=== PATIENT | male | born 1975 | race Caucasian/White ===

== ENCOUNTER 2018-11-07 07:47 | Emergency (ER) | payer OTHER, SELFPAY ==
[2018-11-07] VITALS (7 sets, daily range): BP systolic 131–146; BP diastolic 76–106; PULSE 74–94; RESP 12–28; TEMP 36.2; O2SAT 96–100
--- NOTE | 2018-11-07 08:05 | ED.URI ---
HPI - URI/Sore Throat General Chief Complaint: Upper Respiratory Symptoms Stated Complaint: coughing up blood Time Seen by Provider: 11/07/18 07:58 Source: patient Mode of arrival: ambulatory Limitations: no limitations History of Present Illness HPI Narrative: Patient is a 43-year-old male who presents with productive cough ongoing for about 3 weeks. He was seen evaluated at the walk-in clinic all 1 week ago all placed on amoxicillin prednisone albuterol. He says overall he does not feel any better. He continues to cough up. Initially it was green however this morning was brown and blood tinged. He feels weak and short of breath with exertion. He has had chills and sweats but is afebrile. He feels like his chest is tight at times. Every time he takes a deep breath he coughs MD Complaint: fever and cough Related Data Home Medications Medication Instructions Recorded Confirmed amoxicillin 1,000 mg PO [id number] 11/07/18 11/07/18 Previous Rx's Medication Instructions Recorded albuterol sulfate HFA 90 1 inh INHALATION Q4-6H PRN #18 gram 11/01/18 mcg/actuation aerosol inhaler azithromycin 250 mg tablet See Rx Instructions PO .COMPLEX #6 11/01/18 tab benzonatate 100 mg capsule 100 mg PO BEDTIME #20 cap 11/01/18 albuterol sulfate 2 puff INHALATION Q4-6H PRN #8 gram 11/07/18 doxycycline hyclate 100 mg PO BID #14 cap 11/07/18 Allergies Allergy/AdvReac Type Severity Reaction Status Date / Time meperidine [From Demerol] Allergy Unknown Verified 11/01/18 10:39 stimulants AdvReac Unknown Uncoded 09/20/18 09:13 Review of Systems Review of Systems ROS Unobtainable: All systems reviewed & are unremarkable except as noted in HPI and below Constitutional Denies chills, Denies fever(s), Denies lethargy and Denies weakness Eyes Denies change in vision, Denies eye discharge, Denies irritation and Denies loss of vision Cardiovascular Reports chest pain Respiratory Reports as per HPI Gastrointestinal Gastrointestinal: Denies abdominal pain, Denies change in bowel habits, Denies diarrhea, Denies nausea and Denies vomiting Genitourinary Denies hematuria, Denies flank pain, Denies urinary incontinence and Denies urinary urgency Musculoskeletal Denies back pain, Denies muscle weakness, Denies numbness and Denies tingling Integumentary/Breasts Denies pruritus, Denies erythema, Denies rash and Denies wounds Neurologic Denies loss of vision, Denies numbness, Denies tingling and Denies weakness [facility] Medical History Patient denies significant medical history (Acute) Social History Smoking Status: Former smoker Social History Smoking Status: Former smoker Exam Initial Vital Signs Initial Vital Signs: Vital Signs Temperature 97.2 F L 11/07/18 07:59 Pulse Rate 86 11/07/18 07:59 Respiratory Rate 28 H 11/07/18 07:59 Blood Pressure 146/106 H 11/07/18 07:59 Pulse Oximetry 97 11/07/18 07:59 GENERAL: Patient does appear in some mild distress but A&O times 4 HEENT: Head atraumatic,EOMI, pupils reactive, face symmetric, moist mucous membranes CARDIOVASCULAR: Regular rate and rhythm without murmurs, rubs or gallops. RESPIRATORY: Crackles on the left side. He has some mild conversational dyspnea but is able to speak completely. No wheezing ABDOMEN: Soft, nontender. Normoactive bowel sounds all 4 quadrants. No guarding or rebound. EXTREMITIES: Normal range of motion, no clubbing or edema. Neurovascularly intact NEUROLOGICAL: Alert and oriented x4.Normal gait and speech. Cranial nerves II through XII grossly intact. SKIN: Warm, dry, no laceration, no petechiae, no rashes or lesions. Course Orders Ordered: ED Orders 11/07/18 09:26 Comprehensive Metabolic Panel Stat Discontinued Medications Albuterol (Ventolin) 2.5 mg INH NOW ONE Stop: 11/07/18 08:42 Last Admin: 11/07/18 08:44 Dose: 2.5 mg Albuterol/Ipratropium (Duoneb) 3 ml INH NOW ONE Stop: 11/07/18 08:06 Last Admin: 11/07/18 08:28 Dose: 3 ml Sodium Chloride (Normal Saline 0.9%) 1,000 mls @ 1,000 mls/hr IV BOLUS ONE Stop: 11/07/18 09:04 Last Infusion: 11/07/18 10:06 Dose: 0 mls/hr Admin: 11/07/18 08:43 Dose: 1,000 mls/hr Vital Signs - 8 hr 11/07/18 10:30 Pulse Rate 77 Respiratory Rate 12 Blood Pressure [Left Arm] 138/76 Pulse Oximetry 96 MDM - URI/Sore Throat Lab Data Attestation: I reviewed the patient's lab results. Result diagrams: 11/07/18 08:35 11/07/18 09:26 Lab Results 11/07/18 11/07/18 Range/Units 08:35 09:26 WBC 12.1 H (4.5-11.0) X10^3/uL RBC 5.67 (4.5-5.9) X10^6/uL Hgb 15.7 (13.5-17.5) g/dL Hct 47.0 (41-53) % MCV 83.0 (80-100) fL MCH 27.7 (26-34) PG MCHC 33.4 (30-36) % RDW 13.7 (11.6-14.8) % Plt Count 319 (150-400) X10^3/uL Neut % (Auto) 74.4 (50-75) % Lymph % (Auto) 17.8 L (25-40) % [place] % (Auto) 6.2 (3-14) % Eos % (Auto) 0.8 L (2-4) % Baso % (Auto) 0.8 (0-2) % Neut # (Auto) 9000 H (8015-2396) /uL Lymph # (Auto) 2100 (2987-8743) /uL [place] # (Auto) 700 (0-900) /uL Eos # (Auto) 100 (0-450) /uL Baso # (Auto) 100 (0-100) /uL Sodium 141 (137-145) mmol/L Potassium 3.6 (3.4-5.1) mmol/L Chloride 109 H (98-107) mmol/L Carbon Dioxide 24 (22-32) mmol/L BUN 11 (9-20) mg/dL Creatinine 0.80 (0.66-1.25) mg/dL Estimated GFR > 60.0 (>60) mL/min BUN/Creatinine Ratio 13.8 (6-22) Glucose 110 H (70-100) mg/dL Calcium 8.4 (8.4-10.2) mg/dL Total Bilirubin 0.4 (0.2-1.3) mg/dL AST 15 L (17-59) IU/L ALT 27 (21-72) IU/L Alkaline Phosphatase 62 (38-126) U/L Total Protein 6.5 (6.3-8.2) g/dL Albumin 3.5 (3.5-5.0) g/dL Globulin 3.0 (1.7-4.1) g/dL Albumin/Globulin Ratio 1.2 (1.0-2.8) Imaging Data Chest x-ray: Radiologist's impression: PROCEDURE: XR CHEST 2V INDICATIONS: cough TECHNIQUE: 2 views of the chest were acquired. COMPARISON: None. FINDINGS: Surgical changes and devices: None. Lungs and pleura: Lungs are clear. No pleural effusions or pneumothorax. Mediastinum: Mediastinal contours are normal. Heart size is normal. Bones and chest wall: No suspicious bony abnormalities. Soft tissues appear unremarkable. IMPRESSION: No acute process. Dictated by: Rosalio Frost M.D. on 11/07/2018 at 8:26 MDM Narrative Medical decision making narrative: Patient's no sign of pneumonia on x-ray. However I will trend up as antibiotics to something to cover more respiratory infections. His mild leukocytosis but was just on prednisone at this point does not appear septic. He is afebrile breathing has improved after albuterol. Respiratory has been down to teach him about spacer use. Discharge Plan Departure Patient Disposition: Home Clinical Impression: Upper respiratory infection Qualifiers: URI type: unspecified URI Qualified Code(s): J06.9 - Acute upper respiratory infection, unspecified Discharge Date/Time: 11/07/18 11:09 Interventions: ED Discharge Assessment Last Done: 11/07/18 11:08 Instructions: DI for Acute Bronchitis Activity Restrictions/Additional Instructions: *You have been diagnosed with bronchitis *What to do: Rest increased fluid *Continue to take medications as directed Stop taking amoxicillin Start Doxycycline 100 mg twice a day 7--> SENT TO [facility] IN [place] Albuterol 1-2 puffs every 4 hours if needed for cough *Follow up with your primary care provider in 2-3 days *Return to ER if you should have increasing shortness of breath, chest pain or any new, worsening or concerning symptoms Prescriptions: New doxycycline hyclate 100 mg capsule 100 mg PO BID Qty: 14 RF: 0 albuterol sulfate 90 mcg/actuation HFA aerosol inhaler 2 puff INHALATION Q4-6H PRN (Reason: shortness of breath or wheezing) Qty: 8 RF: 0 No Action azithromycin 250 mg tablet See Rx Instructions PO .COMPLEX Qty: 6 RF: 0 benzonatate 100 mg capsule 100 mg PO BEDTIME Qty: 20 RF: 0 albuterol sulfate 90 mcg/actuation HFA aerosol inhaler 1 inh INHALATION Q4-6H PRN (Reason: shortness of breath) Qty: 18 RF: 0 amoxicillin 500 mg capsule 1,000 mg PO [id number] RF: 0 Referrals: [facility] [Outside] Stand Alone Forms: Work Release Note
--- NOTE | 2018-11-07 08:12 | ED_ITS ---
HPI - URI/Sore Throat General Chief Complaint: Upper Respiratory Symptoms Stated Complaint: coughing up blood Time Seen by Provider: 11/07/18 07:58 Source: patient Mode of arrival: ambulatory Limitations: no limitations History of Present Illness HPI Narrative: Patient is a 43-year-old male who presents with productive cough ongoing for about 3 weeks. He was seen evaluated at the walk-in clinic all 1 week ago all placed on amoxicillin prednisone albuterol. He says overall he does not feel any better. He continues to cough up. Initially it was green however this morning was brown and blood tinged. He feels weak and short of breath with exertion. He has had chills and sweats but is afebrile. He feels like his chest is tight at times. Every time he takes a deep breath he coughs MD Complaint: fever and cough Related Data Home Medications Medication Instructions Recorded Confirmed amoxicillin 1,000 mg PO [id number] 11/07/18 11/07/18 Previous Rx's Medication Instructions Recorded albuterol sulfate HFA 90 1 inh INHALATION Q4-6H PRN #18 gram 11/01/18 mcg/actuation aerosol inhaler azithromycin 250 mg tablet See Rx Instructions PO .COMPLEX #6 11/01/18 tab benzonatate 100 mg capsule 100 mg PO BEDTIME #20 cap 11/01/18 albuterol sulfate 2 puff INHALATION Q4-6H PRN #8 gram 11/07/18 doxycycline hyclate 100 mg PO BID #14 cap 11/07/18 Allergies Allergy/AdvReac Type Severity Reaction Status Date / Time meperidine [From Demerol] Allergy Unknown Verified 11/01/18 10:39 stimulants AdvReac Unknown Uncoded 09/20/18 09:13 Review of Systems Review of Systems ROS Unobtainable: All systems reviewed & are unremarkable except as noted in HPI and below Constitutional Denies chills, Denies fever(s), Denies lethargy and Denies weakness Eyes Denies change in vision, Denies eye discharge, Denies irritation and Denies loss of vision Cardiovascular Reports chest pain Respiratory Reports as per HPI Gastrointestinal Gastrointestinal: Denies abdominal pain, Denies change in bowel habits, Denies diarrhea, Denies nausea and Denies vomiting Genitourinary Denies hematuria, Denies flank pain, Denies urinary incontinence and Denies urinary urgency Musculoskeletal Denies back pain, Denies muscle weakness, Denies numbness and Denies tingling Integumentary/Breasts Denies pruritus, Denies erythema, Denies rash and Denies wounds Neurologic Denies loss of vision, Denies numbness, Denies tingling and Denies weakness [facility] Medical History Patient denies significant medical history (Acute) Social History Smoking Status: Former smoker Social History Smoking Status: Former smoker Exam Initial Vital Signs Initial Vital Signs: Vital Signs Temperature 97.2 F L 11/07/18 07:59 Pulse Rate 86 11/07/18 07:59 Respiratory Rate 28 H 11/07/18 07:59 Blood Pressure 146/106 H 11/07/18 07:59 Pulse Oximetry 97 11/07/18 07:59 GENERAL: Patient does appear in some mild distress but A&O times 4 HEENT: Head atraumatic,EOMI, pupils reactive, face symmetric, moist mucous membranes CARDIOVASCULAR: Regular rate and rhythm without murmurs, rubs or gallops. RESPIRATORY: Crackles on the left side. He has some mild conversational dyspnea but is able to speak completely. No wheezing ABDOMEN: Soft, nontender. Normoactive bowel sounds all 4 quadrants. No guarding or rebound. EXTREMITIES: Normal range of motion, no clubbing or edema. Neurovascularly intact NEUROLOGICAL: Alert and oriented x4.Normal gait and speech. Cranial nerves II through XII grossly intact. SKIN: Warm, dry, no laceration, no petechiae, no rashes or lesions. Course Orders Ordered: ED Orders 11/07/18 09:26 Comprehensive Metabolic Panel Stat Discontinued Medications Albuterol (Ventolin) 2.5 mg INH NOW ONE Stop: 11/07/18 08:42 Last Admin: 11/07/18 08:44 Dose: 2.5 mg Albuterol/Ipratropium (Duoneb) 3 ml INH NOW ONE Stop: 11/07/18 08:06 Last Admin: 11/07/18 08:28 Dose: 3 ml Sodium Chloride (Normal Saline 0.9%) 1,000 mls @ 1,000 mls/hr IV BOLUS ONE Stop: 11/07/18 09:04 Last Infusion: 11/07/18 10:06 Dose: 0 mls/hr Admin: 11/07/18 08:43 Dose: 1,000 mls/hr Vital Signs - 8 hr 11/07/18 10:30 Pulse Rate 77 Respiratory Rate 12 Blood Pressure [Left Arm] 138/76 Pulse Oximetry 96 MDM - URI/Sore Throat Lab Data Attestation: I reviewed the patient's lab results. Result diagrams: 11/07/18 08:35 11/07/18 09:26 Lab Results 11/07/18 11/07/18 Range/Units 08:35 09:26 WBC 12.1 H (4.5-11.0) X10^3/uL RBC 5.67 (4.5-5.9) X10^6/uL Hgb 15.7 (13.5-17.5) g/dL Hct 47.0 (41-53) % MCV 83.0 (80-100) fL MCH 27.7 (26-34) PG MCHC 33.4 (30-36) % RDW 13.7 (11.6-14.8) % Plt Count 319 (150-400) X10^3/uL Neut % (Auto) 74.4 (50-75) % Lymph % (Auto) 17.8 L (25-40) % [place] % (Auto) 6.2 (3-14) % Eos % (Auto) 0.8 L (2-4) % Baso % (Auto) 0.8 (0-2) % Neut # (Auto) 9000 H (4207-2028) /uL Lymph # (Auto) 2100 (7481-6351) /uL [place] # (Auto) 700 (0-900) /uL Eos # (Auto) 100 (0-450) /uL Baso # (Auto) 100 (0-100) /uL Sodium 141 (137-145) mmol/L Potassium 3.6 (3.4-5.1) mmol/L Chloride 109 H (98-107) mmol/L Carbon Dioxide 24 (22-32) mmol/L BUN 11 (9-20) mg/dL Creatinine 0.80 (0.66-1.25) mg/dL Estimated GFR > 60.0 (>60) mL/min BUN/Creatinine Ratio 13.8 (6-22) Glucose 110 H (70-100) mg/dL Calcium 8.4 (8.4-10.2) mg/dL Total Bilirubin 0.4 (0.2-1.3) mg/dL AST 15 L (17-59) IU/L ALT 27 (21-72) IU/L Alkaline Phosphatase 62 (38-126) U/L Total Protein 6.5 (6.3-8.2) g/dL Albumin 3.5 (3.5-5.0) g/dL Globulin 3.0 (1.7-4.1) g/dL Albumin/Globulin Ratio 1.2 (1.0-2.8) Imaging Data Chest x-ray: Radiologist's impression: PROCEDURE: XR CHEST 2V INDICATIONS: cough TECHNIQUE: 2 views of the chest were acquired. COMPARISON: None. FINDINGS: Surgical changes and devices: None. Lungs and pleura: Lungs are clear. No pleural effusions or pneumothorax. Mediastinum: Mediastinal contours are normal. Heart size is normal. Bones and chest wall: No suspicious bony abnormalities. Soft tissues appear unremarkable. IMPRESSION: No acute process. Dictated by: Rosalio Frost M.D. on 11/07/2018 at 8:26 MDM Narrative Medical decision making narrative: Patient's no sign of pneumonia on x-ray. However I will trend up as antibiotics to something to cover more respiratory infections. His mild leukocytosis but was just on prednisone at this point does not appear septic. He is afebrile breathing has improved after albuterol. Respiratory has been down to teach him about spacer use. Discharge Plan Departure Patient Disposition: Home Clinical Impression: Upper respiratory infection Qualifiers: URI type: unspecified URI Qualified Code(s): J06.9 - Acute upper respiratory infection, unspecified Discharge Date/Time: 11/07/18 11:09 Interventions: ED Discharge Assessment Last Done: 11/07/18 11:08 Instructions: DI for Acute Bronchitis Activity Restrictions/Additional Instructions: *You have been diagnosed with bronchitis *What to do: Rest increased fluid *Continue to take medications as directed Stop taking amoxicillin Start Doxycycline 100 mg twice a day 7--> SENT TO [facility] IN [place] Albuterol 1-2 puffs every 4 hours if needed for cough *Follow up with your primary care provider in 2-3 days *Return to ER if you should have increasing shortness of breath, chest pain or any new, worsening or concerning symptoms Prescriptions: New doxycycline hyclate 100 mg capsule 100 mg PO BID Qty: 14 RF: 0 albuterol sulfate 90 mcg/actuation HFA aerosol inhaler 2 puff INHALATION Q4-6H PRN (Reason: shortness of breath or wheezing) Qty: 8 RF: 0 No Action azithromycin 250 mg tablet See Rx Instructions PO .COMPLEX Qty: 6 RF: 0 benzonatate 100 mg capsule 100 mg PO BEDTIME Qty: 20 RF: 0 albuterol sulfate 90 mcg/actuation HFA aerosol inhaler 1 inh INHALATION Q4-6H PRN (Reason: shortness of breath) Qty: 18 RF: 0 amoxicillin 500 mg capsule 1,000 mg PO [id number] RF: 0 Referrals: [facility] [Outside] Stand Alone Forms: Work Release Note
[2018-11-07] MEDS: ALBUTEROL/IPRATROPIUM 3 ML AMPUL INH (08:28)
[2018-11-07] MEDS: SODIUM CHLORIDE 0.9% 1,000 ML 1000 ML IV (08:43)
[2018-11-07] MEDS: ALBUTEROL 2.5 MG/3 ML NEB (ADULT) INH (08:44)
[2018-11-07 08:52] LABS: Add Manual Diff / Slide Review NO; Basophils Absolute Auto 100 /uL (0-100); Basophils Percent Auto 0.8 % (0-2); Eosinophils Absolute Auto 100 /uL (0-450); Eosinophils Percent Auto 0.8 % (2-4); Hemoglobin 15.7 g/dL (13.5-17.5); Lymphocytes Absolute Auto 2100 /uL (1100-4500); Lymphocytes Percent Auto 17.8 % (25-40); Mean Corpuscular HGB Conc 33.4 % (30-36); Mean Corpuscular Hemoglobin 27.7 PG (26-34); Monocytes Absolute Auto 700 /uL (0-900); Monocytes Percent Auto 6.2 % (3-14); Neutrophils Absolute Auto 9000 /uL (1500-7000); Neutrophils Percent Auto 74.4 % (50-75); Platelet Count 319 X10^3/uL (150-400); Red Blood Cell Count 5.67 X10^6/uL (4.5-5.9); Red Cell Distribution Width 13.7 % (11.6-14.8); White Blood Cell Count 12.1 X10^3/uL (4.5-11.0)
[2018-11-07 09:52] LABS: Alanine Aminotransferase 27 IU/L (21-72); Albumin 3.5 g/dL (3.5-5.0); Albumin Globulin Ratio 1.2 (1.0-2.8); Alkaline Phosphatase 62 U/L (38-126); Aspartate Aminotransferase 15 IU/L (17-59); BUN Creatinine Ratio 13.8 (6-22); Bilirubin Total 0.4 mg/dL (0.2-1.3); Blood Urea Nitrogen 11 mg/dL (9-20); Calcium 8.4 mg/dL (8.4-10.2); Carbon Dioxide 24 mmol/L (22-32); Chloride 109 mmol/L (98-107); Estimated Glomerular Filt Rate > 60.0 mL/min (>60); Glucose 110 mg/dL (70-100); HEMOLYSIS < 15 (0-50); Potassium 3.6 mmol/L (3.4-5.1); Sodium 141 mmol/L (137-145); Total Protein 6.5 g/dL (6.3-8.2)
== END 2018-11-07 11:09 | disposition home or self-care (01) ==
PROVIDERS: Emergency Provider Emergency Medicine
DX: J06.9 Acute upper respiratory infection, unspecified (principal)
CPT/HCPCS: 36415; 36591; 71046; 80053; 85025; 94150; 94640; 96360; 99283; 99284; J7613

== ENCOUNTER → 2020-09-05 14:14 | Outpatient (CLI) | payer OTHER, SELFPAY ==
[2020-09-05 14:30] LABS: Add Manual Diff / Slide Review NO; Basophils Absolute Auto 100 /uL (0-100); Basophils Percent Auto 0.7 % (0-2); Eosinophils Absolute Auto 300 /uL (0-450); Eosinophils Percent Auto 2.6 % (2-4); Hemoglobin 17.3 g/dL (13.5-17.5); Lymphocytes Absolute Auto 1800 /uL (1100-4500); Lymphocytes Percent Auto 16.1 % (25-40); Mean Corpuscular HGB Conc 32.6 % (30-36); Mean Corpuscular Hemoglobin 27.4 PG (26-34); Monocytes Absolute Auto 700 /uL (0-900); Monocytes Percent Auto 6.3 % (3-14); Neutrophils Absolute Auto 8200 /uL (1500-7000); Neutrophils Percent Auto 74.3 % (50-75); Platelet Count 305 X10^3/uL (150-400); Red Cell Distribution Width 13.8 % (11.6-14.8); White Blood Cell Count 11.1 X10^3/uL (4.5-11.0)
[2020-09-05 14:46] LABS: Alanine Aminotransferase 23 IU/L (<50); Albumin 4.7 g/dL (3.5-5.0); Albumin Globulin Ratio 1.2 (1.0-2.8); Alkaline Phosphatase 79 U/L (38-126); Aspartate Aminotransferase 29 IU/L (17-59); BUN Creatinine Ratio 13.4 (6-22); Bilirubin Total 0.8 mg/dL (0.2-1.3); Blood Urea Nitrogen 13 mg/dL (9-20); Calcium 10.2 mg/dL (8.4-10.2); Carbon Dioxide 29 mmol/L (22-32); Chloride 103 mmol/L (98-107); Estimated Glomerular Filt Rate > 60.0 mL/min (>60); Glucose 107 mg/dL (70-100); HEMOLYSIS < 15 (0-50); Potassium 5.1 mmol/L (3.4-5.1); Sodium 140 mmol/L (137-145); Total Protein 8.7 g/dL (6.3-8.2)
[2020-09-05 15:25] LABS: TSH w/ Reflex to FT4 1.48 uIU/mL (0.47-4.68)
== END ==
PROVIDERS: Referring Provider Physician Assistant; Visit Provider Physician Assistant
DX: R53.83 Other fatigue (principal)
CPT/HCPCS: 36415; 80053; 84443; 85025

== ENCOUNTER → 2020-10-10 12:51 | Outpatient (CLI) | payer OTHER, SELFPAY ==
[2020-10-10 14:04] LABS: Add Manual Diff / Slide Review NO; Basophils Absolute Auto 100 /uL (0-100); Basophils Percent Auto 0.6 % (0-2); Eosinophils Absolute Auto 100 /uL (0-450); Eosinophils Percent Auto 1.1 % (2-4); Hematocrit 47.8 % (41-53); Hemoglobin 16.1 g/dL (13.5-17.5); Lymphocytes Absolute Auto 2000 /uL (1100-4500); Lymphocytes Percent Auto 20.9 % (25-40); Mean Corpuscular HGB Conc 33.6 % (30-36); Mean Corpuscular Hemoglobin 28.4 PG (26-34); Mean Corpuscular Volume 84.3 fL (80-100); Monocytes Absolute Auto 600 /uL (0-900); Monocytes Percent Auto 5.8 % (3-14); Neutrophils Absolute Auto 6900 /uL (1500-7000); Neutrophils Percent Auto 71.6 % (50-75); Platelet Count 280 X10^3/uL (150-400); Red Blood Cell Count 5.67 X10^6/uL (4.5-5.9); Red Cell Distribution Width 13.5 % (11.6-14.8); White Blood Cell Count 9.6 X10^3/uL (4.5-11.0)
[2020-10-10 14:13] LABS: Hemoglobin A1C% w Est Avg Glu 5.1 % (4.0-6.0)
[2020-10-10 14:16] LABS: Alanine Aminotransferase 23 IU/L (<50); Albumin 4.6 g/dL (3.5-5.0); Albumin Globulin Ratio 1.3 (1.0-2.8); Alkaline Phosphatase 72 U/L (38-126); Aspartate Aminotransferase 29 IU/L (17-59); BUN Creatinine Ratio 14.5 (6-22); Bilirubin Total 0.7 mg/dL (0.2-1.3); Blood Urea Nitrogen 11 mg/dL (9-20); Calcium 9.7 mg/dL (8.4-10.2); Carbon Dioxide 24 mmol/L (22-32); Chloride 106 mmol/L (98-107); Cholesterol 137 mg/dL (140-199); Estimated Glomerular Filt Rate > 60.0 mL/min (>60); Globulin 3.5 g/dL (1.7-4.1); Glucose 95 mg/dL (70-100); HDL Cholesterol 35 mg/dL (40-60); HEMOLYSIS < 15 (0-50); LDL Cholesterol Calculated 90 mg/dL (<100); Potassium 4.1 mmol/L (3.4-5.1); Sodium 140 mmol/L (137-145); Total Protein 8.1 g/dL (6.3-8.2); Triglycerides 58 mg/dL (35-150)
[2020-10-10 16:30] LABS: HIV 1 & 2 Ab/Ag 4th Gen Combo NEGATIVE (NEGATIVE)
== END ==
PROVIDERS: Referring Provider Physician Assistant; Visit Provider Physician Assistant
DX: Z13.6 Encounter for screening for cardiovascular disorders (principal); Z83.3 Family history of diabetes mellitus; Z13.220 Encounter for screening for lipoid disorders; Z20.2 Contact with and (suspected) exposure to infections with a predominantly sexual mode of transmission
CPT/HCPCS: 36415; 80053; 80061; 83036; 85025; 87389

== ENCOUNTER → 2020-12-10 11:33 | Outpatient (ROUT) | payer OTHER, SELFPAY ==
[2020-12-10 12:14] LABS: COVID19 -Nasal RAPID Negative (Negative)
== END ==
PROVIDERS: Visit Provider Physician Assistant
DX: Z20.822 Contact with and (suspected) exposure to COVID-19 (principal); B34.9 Viral infection, unspecified
CPT/HCPCS: 87635

== ENCOUNTER → 2021-08-20 13:26 | Outpatient (CLI) | payer OTHER, SELFPAY ==
[2021-08-20 14:49] LABS: Add Manual Diff / Slide Review NO; Basophils Absolute Auto 0 /uL (0-100); Basophils Percent Auto 0.5 % (0-2); Eosinophils Absolute Auto 100 /uL (0-450); Eosinophils Percent Auto 1.8 % (2-4); Hematocrit 46.4 % (41-53); Hemoglobin 16.1 g/dL (13.5-17.5); Lymphocytes Absolute Auto 1700 /uL (1100-4500); Lymphocytes Percent Auto 24.3 % (25-40); Mean Corpuscular HGB Conc 34.6 % (30-36); Mean Corpuscular Hemoglobin 28.5 PG (26-34); Mean Corpuscular Volume 82.3 fL (80-100); Monocytes Absolute Auto 400 /uL (0-900); Monocytes Percent Auto 6.1 % (3-14); Neutrophils Absolute Auto 4700 /uL (1500-7000); Neutrophils Percent Auto 67.3 % (50-75); Platelet Count 299 X10^3/uL (150-400); Red Blood Cell Count 5.64 X10^6/uL (4.5-5.9); Red Cell Distribution Width 13.4 % (11.6-14.8)
[2021-08-20 14:57] LABS: Alanine Aminotransferase 17 IU/L (<50); Albumin 4.8 g/dL (3.5-5.0); Albumin Globulin Ratio 1.3 (1.0-2.8); Alkaline Phosphatase 70 U/L (38-126); Aspartate Aminotransferase 26 IU/L (17-59); BUN Creatinine Ratio 14.3 (6-22); Bilirubin Total 0.5 mg/dL (0.2-1.3); Blood Urea Nitrogen 12 mg/dL (9-20); Calcium 9.5 mg/dL (8.4-10.2); Carbon Dioxide 26 mmol/L (22-32); Chloride 106 mmol/L (98-107); Estimated Glomerular Filt Rate > 60 mL/min (>60); Globulin 3.6 g/dL (1.7-4.1); Glucose 90 mg/dL (70-100); HEMOLYSIS < 15 (0-50); Sodium 141 mmol/L (137-145); Total Protein 8.4 g/dL (6.3-8.2)
[2021-08-20 15:57] LABS: TSH w/ Reflex to FT4 1.74 uIU/mL (0.47-4.68)
== END ==
PROVIDERS: PCP Physician Assistant; Referring Provider Physician Assistant; Visit Provider Physician Assistant
DX: R53.83 Other fatigue (principal)
CPT/HCPCS: 36415; 80053; 84443; 85025

== ENCOUNTER → 2022-01-05 09:00 | Outpatient (CLI) | payer OTHER, SELFPAY ==
[2022-01-05 11:02] LABS: Alanine Aminotransferase 20 IU/L (<50); Albumin 4.3 g/dL (3.5-5.0); Albumin Globulin Ratio 1.2 (1.0-2.8); Alkaline Phosphatase 74 U/L (38-126); Aspartate Aminotransferase 26 IU/L (17-59); BUN Creatinine Ratio 11.5 (6-22); Bilirubin Total 0.4 mg/dL (0.2-1.3); Blood Urea Nitrogen 10 mg/dL (9-20); Calcium 9.2 mg/dL (8.4-10.2); Carbon Dioxide 28 mmol/L (22-32); Chloride 102 mmol/L (98-107); Cholesterol 150 mg/dL (140-199); Estimated Glomerular Filt Rate > 60 mL/min (>60); Globulin 3.6 g/dL (1.7-4.1); Glucose 103 mg/dL (70-100); HDL Cholesterol 29 mg/dL (40-60); HEMOLYSIS < 15 (0-50); LDL Cholesterol Calculated 95 mg/dL (<100); Potassium 4.4 mmol/L (3.4-5.1); Sodium 141 mmol/L (137-145); Total Protein 7.9 g/dL (6.3-8.2); Triglycerides 128 mg/dL (35-150)
[2022-01-05 11:58] LABS: Urine N gonorrhoeae NOT DETECTED
[2022-01-05 11:59] LABS: Urine Chlamydia NOT DETECTED
[2022-01-05 18:30] LABS: HIV 1 & 2 Ab/Ag 4th Gen Combo NEGATIVE (NEGATIVE)
== END ==
PROVIDERS: PCP Family Medicine; Referring Provider Family Medicine; Visit Provider Family Medicine
DX: Z20.2 Contact with and (suspected) exposure to infections with a predominantly sexual mode of transmission (principal); R53.83 Other fatigue; E78.6 Lipoprotein deficiency; Z13.220 Encounter for screening for lipoid disorders
CPT/HCPCS: 36415; 80053; 80061; 87389; 87491; 87591

== ENCOUNTER → 2022-02-09 10:34 | Outpatient (CLI) | payer OTHER, SELFPAY ==
[2022-02-09 11:05] LABS: Add Manual Diff / Slide Review NO; Basophils Absolute Auto 0 /uL (0-100); Basophils Percent Auto 0.7 % (0-2); Eosinophils Absolute Auto 200 /uL (0-450); Eosinophils Percent Auto 3.4 % (2-4); Hematocrit 43.5 % (41-53); Hemoglobin 14.8 g/dL (13.5-17.5); Lymphocytes Absolute Auto 1900 /uL (1100-4500); Lymphocytes Percent Auto 28.5 % (25-40); Mean Corpuscular HGB Conc 34.1 % (30-36); Mean Corpuscular Hemoglobin 28.1 PG (26-34); Mean Corpuscular Volume 82.3 fL (80-100); Monocytes Absolute Auto 400 /uL (0-900); Monocytes Percent Auto 6.6 % (3-14); Neutrophils Absolute Auto 4000 /uL (1500-7000); Neutrophils Percent Auto 60.8 % (50-75); Platelet Count 267 X10^3/uL (150-400); Red Blood Cell Count 5.28 X10^6/uL (4.5-5.9); Red Cell Distribution Width 13.7 % (11.6-14.8); White Blood Cell Count 6.6 X10^3/uL (4.5-11.0)
[2022-02-09 11:33] LABS: Hemoglobin A1C% w Est Avg Glu 5.4 % (4.0-6.0)
[2022-02-09 12:14] LABS: Vitamin D 25 Hydroxy (D3) 29.8 ng/mL (30.0-100.0)
[2022-02-09 12:36] LABS: TSH w/ Reflex to FT4 1.32 uIU/mL (0.47-4.68)
[2022-02-09 13:01] LABS: Vitamin B12 602 pg/mL (239-931)
[2022-02-10 12:08] LABS: Triiodothyronine T3 Total 133 ng/dL (71-180)
[2022-02-10 14:53] LABS: Folate 14.7 ng/mL (2.76-20.0)
== END ==
PROVIDERS: PCP Family Medicine; Referring Provider Family Medicine; Visit Provider Family Medicine
DX: R53.82 Chronic fatigue, unspecified (principal); R73.01 Impaired fasting glucose; Z79.899 Other long term (current) drug therapy; E56.9 Vitamin deficiency, unspecified
CPT/HCPCS: 36415; 82306; 82607; 82746; 83036; 84443; 84480; 85025

== ENCOUNTER → 2023-01-16 10:31 | Outpatient (CLI) | payer OTHER, SELFPAY ==
[2023-01-16 11:41] LABS: Alanine Aminotransferase 17 IU/L (<50); Albumin 4.2 g/dL (3.5-5.0); Albumin Globulin Ratio 1.3 (1.0-2.8); Alkaline Phosphatase 60 U/L (38-126); Aspartate Aminotransferase 22 IU/L (17-59); BUN Creatinine Ratio 18.6 (6-22); Bilirubin Total 0.5 mg/dL (0.2-1.3); Blood Urea Nitrogen 16 mg/dL (9-20); Calcium 9.9 mg/dL (8.4-10.2); Carbon Dioxide 29 mmol/L (22-32); Chloride 102 mmol/L (98-107); Estimated Glomerular Filt Rate > 60 mL/min (>60); Globulin 3.3 g/dL (1.7-4.1); Glucose 102 mg/dL (70-100); HEMOLYSIS < 15 (0-50); Potassium 4.3 mmol/L (3.4-5.1); Sodium 138 mmol/L (137-145); Total Protein 7.5 g/dL (6.3-8.2)
[2023-01-16 12:00] LABS: Vitamin D 25 Hydroxy (D3) 47.6 ng/mL (30.0-100.0)
[2023-01-18 13:38] LABS: Cholesterol HDL Ratio 5.5 ratio (0.0-5.0); Cholesterol,Total 170 mg/dL (100-199); HDL Cholesterol 31 mg/dL (>39); LDL Cholesterol Cal 118 mg/dL (0-99); Triglycerides 112 mg/dL (0-149); VLDL Cholesterol Cal 21 mg/dL (5-40)
== END ==
PROVIDERS: PCP Nurse Practitioner Family; Referring Provider Nurse Practitioner Family; Visit Provider Nurse Practitioner Family
DX: E78.5 Hyperlipidemia, unspecified (principal)
CPT/HCPCS: 36415; 80053; 80061; 82306

== ENCOUNTER 2023-04-06 08:31 | Emergency (ER) | payer OTHER, SELFPAY ==
[2023-04-06 08:41] VITALS: BP 112/86; PULSE 99; RESP 16; TEMP 37.3; O2SAT 96; BMI 30.1
[2023-04-06 09:23] LABS: Influenza A - CEPHEID Flu A NEGATIVE (NEGATIVE); Influenza B - CEPHEID Flu B NEGATIVE (NEGATIVE); Respiratory Syncytial Virus Negative (Negative)
[2023-04-06 09:24] LABS: COVID-19 CEPHEID 4-PLEX PCR Negative (Negative)
--- NOTE | 2023-04-06 09:31 | ED_ITS ---
HPI - General Adult General Chief complaint: Upper Respiratory Symptoms Stated complaint: allergic reaction/ picked up something ? Time Seen by Provider: 04/06/23 08:54 Source: patient Mode of arrival: Ambulatory Limitations: no limitations History of Present Illness HPI narrative: Patient with history of hypertension and reported autism who presents with complaint of decreased appetite, generalized shaking, hot and cold flashes, cough with productive white sputum. Patient states he has been sort of wheezing at times. Patient states he had some nausea but has not had any vomiting he had an episode of diarrhea this morning. He states he did have pork and beans Wednesday night. He states he does not tolerate work well but can sometimes have very small amounts. He states he would expect his symptoms to have resolved by now and he states he does not normally get the lungs symptoms all the other symptoms he does. He states he does not have an allergy he never gets swelling of his lips mouth or tongue. He gets no rash. Patient states no chest pain or pressure. No abdominal pain. He is got some generalized muscle aches. Patient states he was not eating or drinking much over the last day and his urine was darker but he started drinking water and has improved. He states only medication is lisinopril. Had prior surgery for his arm as a child which he broke. Has not adverse reaction to Demerol. No regular tobacco, rare alcohol, marijuana but no other recreational drugs. Related Data Previous Rx's Medication Instructions Recorded ondansetron 4 mg disintegrating 4 mg PO Q6H PRN nausea and 04/06/23 tablet vomiting #10 tabs Allergies Allergy/AdvReac Type Severity Reaction Status Date / Time meperidine [From Demerol] Allergy Unknown Verified 08/31/19 14:17 stimulants AdvReac Unknown Uncoded 08/31/19 14:17 Review of Systems Review of Systems ROS Unobtainable: All systems reviewed & are unremarkable except as noted in HPI and below Patient History Medical History (Updated 04/06/23 @ 11:01 by Crystal Causey DO) Patient denies significant medical history Social History Smoking Status: Former smoker Smoking Status: Former smoker Substance Use Type: marijuana Exam Narrative Exam Narrative: GEN: well nourished, well appearing male, alert and oriented x 3, patient appea rs to be in mild distress. HEENT: Atraumatic, pupils are equal round reactive to light, extraocular movements are intact, nares mild rhinorrhea and a TMs are clear with no fluid, there is no conjunctival pallor. Throat is clear without any exudates, mildly erythematous, positive cobblestoning, tonsillar enlargement or uvular deviation, no JVD. HEART: Regular rate and rhythm without murmur, clicks, rubs. LUNGS:Lungs has some rhonchi on the left midlung on the posterior, no wheezes, rales, crackles, chest moves symmetrically, no tachypnea accessory muscle use ABD:bowel sounds normal, soft, non-tender, no guarding, rebound, rigidity, no masses noted, no hepatosplenomegaly :No CVA tenderness MSCL: Non-tender, no muscle atrophy, muscles strength 5/5 upper and lower extremities, full range of motion, normal gait NEURO:CN 2-12 intact, sensation normal SKIN: No rash, erythema or other skin changes. Initial Vital Signs Initial Vital Signs: Vital Signs Temperature 99.2 F 04/06/23 08:41 Pulse Rate 99 H 04/06/23 08:41 Respiratory Rate 16 04/06/23 08:41 Blood Pressure 112/86 04/06/23 08:41 Pulse Oximetry 96 04/06/23 08:41 Oxygen Delivery Method Room Air 04/06/23 08:41 Course Orders Ordered: ED Orders 04/06/23 10:07 Chest [XR chest 2V] Stat Vital Signs Vital signs: Vital Signs - 8 hr 04/06/23 11:15 Pulse Rate 69 Respiratory Rate 16 Blood Pressure 121/88 Pulse Oximetry 98 Oxygen Delivery Method Room Air Medical Decision Making Lab Data Labs: Lab Results 04/06/23 Range/Units 08:40 SARS-CoV-2 (PCR) Negative (Negative) Influenza A (RT-PCR) Flu a negative (NEGATIVE) Influenza B (RT-PCR) Flu b negative (NEGATIVE) RSV (PCR) Negative (Negative) Imaging Data Chest x-ray: Radiologist's Impression: Close Chest X-Ray (Signed) Rosalio Frost - 04/06/23 Chest X-Ray (Signed) Rosalio Frost - 11/07/18 Launch?[address] [address] XRay Report Signed Patient: Gil Weston MR#: [id number] : 1975 Acct:[id number] Age/Sex: 47 / M Date of Service: 04/06/23 Loc: ED Accession Number: [id number] Procedure: XR chest 2V Ordering Provider: Crystal Causey D.O. PROCEDURE: XR CHEST 2V INDICATIONS: cough, phlegm, crackles/rhonchi on left mid back TECHNIQUE: 2 views of the chest were acquired. COMPARISON: [facility], , XR CHEST 2V, 11/07/2018, 8:06. FINDINGS: Surgical changes and devices: None. Lungs and pleura: Lungs are clear. No pleural effusions or pneumothorax. Mediastinum: Mediastinal contours are normal. Heart size is normal. Bones and chest wall: No suspicious bony abnormalities. Soft tissues appear unremarkable. IMPRESSION: No acute cardiopulmonary abnormality is seen. Dictated by: Rosalio Frost M.D. on 04/06/2023 at 10:32 Approved by: Rosalio Frost M.D. on 04/06/2023 at 10:32 [facility] Narrative Medical decision making narrative: 47-year-old male reported history of hypertension, autism who had pork and beans and has not intolerance to pork. Patient states symptoms usually should have resolved in her little bit different than typical. Suspect patient either has a viral upper respiratory infection or on exam he does have some rhonchi particularly on the left. COVID/influenza/RSV is negative. Chest x-ray is negative. Symptomatic management at this time. Hold off on any antibiotics. Discussed return precautions. Patient is also has a nausea symptoms was offered script for antinausea medication. Discharge Plan Departure Patient Disposition: Home Clinical Impression: Upper respiratory infection Activity Restrictions/Additional Instructions: I suspect you have a viral syndrome causing your symptoms is ticklish you take 7-10 days to fully resolve. Can take Tylenol and/or ibuprofen for any fevers or body aches. Can take Zofran 1 tablet every 6 hours as needed for nausea. Please return for new or worsening chest pain, shortness of breath, passing out, new swelling of extremities, persistent vomiting signs of dehydration or other new or concerning changes. Prescriptions: New ondansetron 4 mg tablet,disintegrating 4 mg PO Q6H PRN (Reason: nausea and vomiting) Qty: 10 0RF Referrals: Rachael Pratt, RN [Primary Care Provider] - Stand Alone Forms: Patient Portal/API
--- NOTE | 2023-04-06 10:07 | DI.RAD.S_ITS ---
PROCEDURE: XR CHEST 2V INDICATIONS: cough, phlegm, crackles/rhonchi on left mid back TECHNIQUE: 2 views of the chest were acquired. COMPARISON: [facility], , XR CHEST 2V, 11/07/2018, 8:06. FINDINGS: Surgical changes and devices: None. Lungs and pleura: Lungs are clear. No pleural effusions or pneumothorax. Mediastinum: Mediastinal contours are normal. Heart size is normal. Bones and chest wall: No suspicious bony abnormalities. Soft tissues appear unremarkable. IMPRESSION: No acute cardiopulmonary abnormality is seen. Dictated by: Rosalio Frost M.D. on 04/06/2023 at 10:32 Approved by: Rosalio Frost M.D. on 04/06/2023 at 10:32
[2023-04-06 11:15] VITALS: BP 121/88; PULSE 69; RESP 16; O2SAT 98
== END 2023-04-06 11:22 | disposition home or self-care (01) ==
PROVIDERS: Emergency Provider Emergency Medicine; PCP Nurse Practitioner Family
DX: J06.9 Acute upper respiratory infection, unspecified (principal); Z20.822 Contact with and (suspected) exposure to COVID-19
CPT/HCPCS: 0241U; 71046; 99281; 99283